=== PATIENT | male | born 1970 | race Caucasian/White ===

== ENCOUNTER 2019-07-01 18:23 | Emergency (ER) | payer MEDICAID ==
[~2019-07-01] VITALS: Ht 180.3 cm; Wt 63.5 kg
[~2019-07-01 18:23] MED LIST: ALEVE220 MG PO; ATORVASTATIN CA40 MG PO; BACTRIM DS TAB1 EACH PO; CELEXA20 MG PO; CLONAZEPAM 1 MG1 M1; DOXEPIN 50MG CA50 M1; HALOPERIDOL 5 MG5 MG; HYDROCODONE-AP1 EAC6 PO; IBUPROFEN 800800 M1 PO; IBUPROFEN 800800 MG PO; KEFLEX500 M1 PO; LIDOCAINE VISC100 ML SWISH&SPIT; LIDODERM 5%1 PATC1 TRANSDERM; LORTAB 7.5/5001 TA3 PO; NAPROSYN500 MG PO; NORCO 10-325 T1 EACH PO; NORCO 5-325 TA1 EACH PO; QUETIAPINE FUM300 MG PO; REMERON15 MG PO; RESTORIL30 MG PO; SEROQUEL 25 MG25 M1 PO; TRAZODONE HCL100 MG PO; WELLBUTRIN XL300 MG PO
[2019-07-01] MEDS ORDERED: CYMBALTA30 MG PO (18:40)
[2019-07-01] MEDS ORDERED: DOXEPIN 25 MG C25 M1 PO (18:41)
[2019-07-01] MEDS ORDERED: NORCO 10-325 T1 EACH PO (18:41)
[2019-07-01] MEDS ORDERED: NORCO 5-325 TA1 EAC1 PO (19:49)
[2019-07-01 20:11] VITALS: BP 108/76
== END 2019-07-01 20:11 | disposition home or self-care (01) ==
LOC: M.ERS 18:23
DX: S90.31XA Contusion of right foot, initial encounter (principal); F31.9 Bipolar disorder, unspecified; F17.210 Nicotine dependence, cigarettes, uncomplicated; Z86.73 Personal history of transient ischemic attack (TIA), and cerebral infarction without residual deficits; Z88.0 Allergy status to penicillin; W20.8XXA Other cause of strike by thrown, projected or falling object, initial encounter; Y92.89 Other specified places as the place of occurrence of the external cause; Y93.89 Activity, other specified; Y99.8 Other external cause status

== ENCOUNTER 2020-08-24 15:12 | Inpatient (IN) | payer MEDICAID ==
[~2020-08-24] VITALS: Ht 180.3 cm; Wt 68.0 kg
[~2020-08-24 15:12] MED LIST changes: +CYMBALTA30 MG PO; +DOXEPIN 25 MG C25 M1 PO; +NORCO 5-325 TA1 EAC1 PO
[2020-08-24 15:24] VITALS: BP 114/90
[2020-08-24] MEDS ORDERED: LUNESTA3 MG PO ×2 (15:26→18:37)
[2020-08-24 16:06] LABS: ABSOLUTE BASOPHILS 0.1 thou/uL (0.0-0.2); ABSOLUTE EOSINOPHILS 0.3 thou/uL (0.0-0.7); ABSOLUTE MONOCYTES 0.6 thou/uL (0.0-1.2); ABSOLUTE NEUTROPHILS 5.1 thou/uL (1.6-8.1); BASOPHILS 0.9 %; EOSINOPHILS 3.5 %; HEMATOCRIT 40.4 % (42.0-52.0); HEMOGLOBIN 13.7 gm/dL (14.0-18.0); LYMPHOCYTES 25.3 %; MCH 32.8 pg (26.0-34.0); MCV 96.6 fL (80.0-100.0); MONOCYTES 7.3 %; MPV 6.9 fl. (7.2-11.1); NUCLEATED RBCS 0 /100WBC; PLATELET COUNT* 236 thou/uL (150-400); RBC 4.19 mil/uL (4.50-6.00); RDW-CV 14.5 % (10.5-14.5); WBC 8.1 thou/uL (4.0-11.0)
[2020-08-24 16:19] LABS: CALCIUM 8.2 mg/dL (8.5-10.1); CREATININE 0.8 mg/dL (0.6-1.3); POTASSIUM 4.2 mmol/L (3.5-5.1)
[2020-08-24 16:23] LABS: ALBUMIN 4.4 g/dL (3.4-5.0); TOTAL BILIRUBIN 0.5 mg/dL (<0.1-1.0); TOTAL PROTEIN 7.9 g/dL (6.4-8.2)
[2020-08-24] MEDS ORDERED: SOMA350 MG PO (18:37)
[2020-08-24 19:26] VITALS: BP 125/57
[2020-08-24 19:27] VITALS: BP 131/73
[2020-08-25 04:21] LABS: CALCIUM 7.7 mg/dL (8.5-10.1); POTASSIUM 3.8 mmol/L (3.5-5.1)
[2020-08-25 04:25] LABS: MCHC 34.2 g/dL (28.0-37.0); MCV 96.4 fL (80.0-100.0); RBC 3.63 mil/uL (4.50-6.00); WBC 7.3 thou/uL (4.0-11.0)
--- NOTE | 2020-08-25 04:54 | NUR ---
RECEIVED FLUIDS, ABX SCHEDULED. RECEIVED MORPHINE AND HYDRCODONE AND SOMA FOR PAIN WHEN AVAILABLE. RATES PAIN 8/10. UP AD RADHA, ROOM AIR, ALERT AND ORIENTED. HIS SORE ON EYE SWOLLEN, OPEN TO AIR, PICTURE IN CHART.
[2020-08-25 08:00] VITALS: BP 113/60
--- NOTE | 2020-08-25 10:17 | NUR ---
THIS NURSE AGREES WITH ASSESSMENT
--- NOTE | 2020-08-25 14:00 | NUR ---
Pt is A&O. Resides at home with GF. Independent. Pt uses a cane for mobility. No hx of HH or SNF. Pt's goal is home at dc, no needs anticipate. Anticipate dc tomorrow. Continue IVABX today.
[2020-08-25 15:33] VITALS: BP 122/66
--- NOTE | 2020-08-25 17:10 | NUR ---
PATIENT SITTING IN BED, WATCHING TV. SWELLING AND REDNESS TO LEFT EYE/CHEEK. C/O OF DISCOMFORT, PAIN AND PRESSURE TO AREA. HEALING SCAB TO LEFT CHEEK OPEN TO AIR. MORPHINE X3 GIVEN. HYDROCODONE GIVEN X2. VITAL SIGNS WNL. IV TO LEFT FOREARM INFUSING NORMAL SALINE @100, DRESSING C/D/I. ALL QUESTIONS AND CONCERNS ADDRESSED. WILL CONTINUE TO MONITOR.
[2020-08-25 20:00] VITALS: BP 117/59
--- NOTE | 2020-08-26 04:38 | NUR ---
PT A&O, VSS ON RA. MEDS GIVEN ORDERED. PT RATED PAIN 8-9/10 ALL THE TIME, ASKED FOR PAIN MEDS EVERY 2HRS. MORPHINE AND NORCO GIVEN. UP INDEPENDENTLY IN THE ROOM. IVF INFUISING. CALL [facility]. WILL CONTINUE TO MONITOR.
[2020-08-26 05:06] LABS: HEMATOCRIT 33.5 % (42.0-52.0); HEMOGLOBIN 11.3 gm/dL (14.0-18.0); MCH 32.7 pg (26.0-34.0); MCHC 33.9 g/dL (28.0-37.0); MCV 96.4 fL (80.0-100.0); MPV 7.1 fl. (7.2-11.1); RBC 3.47 mil/uL (4.50-6.00); WBC 6.7 thou/uL (4.0-11.0)
[2020-08-26 05:16] LABS: CALCIUM 8.4 mg/dL (8.5-10.1); CREATININE 0.7 mg/dL (0.6-1.3); POTASSIUM 3.7 mmol/L (3.5-5.1)
[2020-08-26 07:50] VITALS: BP 120/69
--- NOTE | 2020-08-26 11:45 | NUR ---
Pt remains on IVABX, steroids and pain meds. Continues to have swelling in eye. Pt may leave AMA, d/t not being able to smoke. Goal is home at dc, no needs.
[2020-08-26 15:21] VITALS: BP 115/59
--- NOTE | 2020-08-26 18:37 | NUR ---
PATIENT RESTING IN BED. PATIENT IS UP AD RADHA IN ROOM AND HAS WALKED IN HALLS X 1. PATIENT HAS COMPLAINTS OF PAIN, TREATED PARTIALLY WITH MORPHINE AND HYDROCODONE. PATIENT HAS GOOD APPETITE. PATIENT GIVEN WARM PACK FOR FACIAL ABSCESS, NO DRAINAGE AT THIS TIME. PATIENT REQUESTING TO USE HIS MEDICAL MARIJUANA BUT WAS INFORMED THAT IT IS NOT USED IN HOSPITAL. PATIENT REQUESTED INCREASE IN PAIN MEDICATION, DR MATTHEWS INFORMED. PATIENT DENIES ANY OTHER NEEDS AT THIS TIME. CALL LIGHT WITHIN REACH.
[2020-08-26 19:45] VITALS: BP 132/64
--- NOTE | 2020-08-27 04:53 | NUR ---
PT AWAKE MOST OF THE NIGHT WATCHING TV. REQUESTING FREQUENT PAIN MEDS FOR CELLULITIS L EYE AND ABSCESS L LATTER-DAY. RFA IVF INFUSING PER PUMP, ABX GIVEN ORDERED. UP AD RADHA IN ROOM. NO LABS THIS MORNING. ABLE TO USE CALL LITE AND MAKE NEEDS KNOWN.
[2020-08-27 07:55] VITALS: BP 131/77
[2020-08-27 10:37] VITALS: BP 132/64
--- NOTE | 2020-08-27 12:33 | NUR ---
Continue IVabx and pain meds. Warm compresses. Anticipate dc in a few days. Cm put info for a new PCP [phone]
[2020-08-27 15:40] VITALS: BP 132/63
--- NOTE | 2020-08-27 18:03 | NUR ---
PATIENT RESTING IN BED. PATIENT IS UP AD RADHA IN ROOM. PATIENT HAS GOOD APPETITE. PATIENT HAS CONTINUED COMPLAINTS OF PAIN TO FACE, TREATED WITH MORPHINE AND HYDROCODONE ORDERED. PATIENT DENIES ANY NEEDS AT THIS TIME. CALL LIGHT WITHIN REACH.
[2020-08-27 23:03] VITALS: BP 128/66
[2020-08-28 04:36] LABS: HEMATOCRIT 33.7 % (42.0-52.0); HEMOGLOBIN 11.7 gm/dL (14.0-18.0); MCH 33.3 pg (26.0-34.0); MCHC 34.7 g/dL (28.0-37.0); RBC 3.51 mil/uL (4.50-6.00); RDW-CV 13.8 % (10.5-14.5); WBC 6.7 thou/uL (4.0-11.0)
[2020-08-28 04:51] LABS: CREATININE 0.8 mg/dL (0.6-1.3); POTASSIUM 3.3 mmol/L (3.5-5.1)
--- NOTE | 2020-08-28 05:02 | NUR ---
PATIENT ALERT/ORIENTED X4. PT WITH FLUIDS/ANTIBIOTICS INFUSING PER DR ORDER. PT UP AD RADHA TO BATHROOM WITH STEADY GAIT AND AMBULATED TO NURSES STATION. PT REQUESTED MORPHINE 4MG IV Q2H AND DILUADID 5/325 (TWO TABS) Q4H. PT SLEPT BRIEFLY AFTER RECEIVING PAIN MEDICATION. WARM PACK GIVEN FOR CELLULITIS ABOVE LT EYE. NO DRAINAGE AT THIS TIME. FREQUENTLY USED ITEMS AND CALL LIGHT WITHIN REACH. SIDERAILS UPX2. WILL CONTINUE TO MONITOR.
[2020-08-28] MEDS ORDERED: CLEOCIN HCL150 MG PO (07:55)
[2020-08-28 08:00] VITALS: BP 138/73
[2020-08-28 11:26] VITALS: BP 132/64
--- NOTE | 2020-08-28 12:17 | NUR ---
PT DISCHARGED HOME WITH ALL BELONGINGS ACCOMPANIED BY /PARNER. PT GIVEN MOSPHINE BEFORE LEAVING THE UNIT (20MINUTES BEFORELEAVING). PICTURE TAKEN OF WOUND. SALINE LOCK REMOVED HUB INTACT. PT DISCHARGED HOME.
== END 2020-08-28 12:00 | disposition home or self-care (01) | DRG 603 ==
LOC: M.ERS 15:12 → M.TBA-ER 18:22 → M.ORTHSURG 19:26
PROVIDERS: Family Medicine; Internal Medicine; Nurse Practitioner Family; ADMIT Internal Medicine; ATTEND Internal Medicine
DX: L03.213 Periorbital cellulitis (principal); F31.9 Bipolar disorder, unspecified; F41.1 Generalized anxiety disorder; G89.4 Chronic pain syndrome; Z20.822 Contact with and (suspected) exposure to COVID-19; Z86.73 Personal history of transient ischemic attack (TIA), and cerebral infarction without residual deficits; Z88.0 Allergy status to penicillin; Z65.8 Other specified problems related to psychosocial circumstances; Z79.891 Long term (current) use of opiate analgesic; Z79.899 Other long term (current) drug therapy